=== PATIENT | female | born 1990 ===

== ENCOUNTER 2025-01-17 13:48 | Emergency (ER) | payer OTHER, SELFPAY ==
[2025-01-17 13:53] VITALS: BP 133/85; PULSE 83; RESP 18; TEMP 36.4; O2SAT 98; BMI 31.3
--- NOTE | 2025-01-17 14:11 | ED.GENADULT ---
HPI - General Adult General Chief complaint: Skin/Abscess/Foreign Body Stated complaint: allergic reaction Time Seen by Provider: 01/17/25 14:00 Source: patient Mode of arrival: ambulatory Limitations: no limitations History of Present Illness ED Provider: Lavonne Gonzales NP HPI narrative: Patient is a 34-year-old female who presents emergency department for evaluation. She reports a diffuse pruritic rash to the bilateral arms, legs, torso and chest over the past week unrelieved with OTC hydrocortisone cream. She denies any known allergens. No new soaps lotions or detergents. She does state that the rash began a couple of days after swimming in a pool. Denies any friends or family with similar rash. No associated chest pain, shortness of breath, or difficulty breathing. No recent URI symptoms. No recent travel. No conjunctivitis. Related Data Previous Rx's ?Medication ?Instructions ?Recorded prednisone 20 mg tablet 40 mg (2 x 20 mg) PO DAILY #10 tabs 01/17/25 Allergies Allergy/AdvReac Type Severity Reaction Status Date / Time No Known Allergies Allergy Verified 01/17/25 13:56 Review of Systems Review of Systems: Yes all other systems are reviewed and are negative [facility] Past Medical History Attestation statement: The following information was validated with the patient. Source: old records reviewed Social History Social History Advance Directives: No Advance Directives Information Provided: No Physical Exam ED Exam Exam: Appearance: Alert.?Oriented to person, place and time. No acute distress.?Normal affect. Eyes: Pupils equal, round and reactive to light.? Conjunctiva within normal range. ENT: Pharynx normal.? No erythema. No swelling. Uvula is midline. ? Neck: Normal inspection.? Neck supple.?? CVS: Heart sounds normal. Normal heart rate and rhythm.? Pulses normal.?? Respiratory: No respiratory distress.? Lung sounds clear to auscultation bilaterally?? Abdomen: Soft and non-tender. Normoactive bowel sounds. ?? Skin: Skin warm and dry.? Normal skin color.? Diffuse maculopapular pruritic rash noted on extremities and torso. No swelling, surrounding erythema or warmth. Extremities: No lower extremity edema. ? Neuro: Moves all extremities spontaneously. Sensation intact bilaterally. Ambulates with normal steady gait. Vital Signs: Vital Signs - 24 hr 01/17/25 13:53 Temperature 97.5 F Pulse Rate 83 Respiratory Rate 18 Blood Pressure 133/85 Pulse Oximetry 98 Oxygen Delivery Method Room Air BMI result Body Mass Index 31.3 Medical Decision Making Medical Decision Making [facility] Narrative: Patient is a 35-year-old female with no reported past medical history who presents emergency department for evaluation of diffuse pruritic maculopapular rash of the extremities and torso over the past week as per HPI. Onset s/p swimming in a pool, no recent travel. On examination no evidence of cellulitis. No associated conjunctivitis not consistent with measles. There was no airway compromise that would favor anaphylaxis. Reviewed with patient potential for allergy type reaction versus contact dermatitis. Given the widespread nature of it, and unresponsiveness thus far to hydrocortisone, you will trial and treatment with or steroid and discussed outpatient follow-up with primary care provider. Utilization of hypoallergenic non scented soaps and lotions in the interim. Reviewed worrisome signs and symptoms that would warrant re-evaluation in the emergency department. Differential Diagnosis Differential Diagnoses: The differential diagnosis associated with the presentation includes (See narrative above) Prescription Management I considered prescription management with: Other (See narrative above) Discharge Plan Discharge Clinical Impression: Contact dermatitis Qualifiers: Contact dermatitis type: unspecified Contact dermatitis trigger: unspecified trigger Qualified Code(s): L25.9 - Unspecified contact dermatitis, unspecified cause Patient Disposition: Home, Self-Care Instructions: Contact Dermatitis (ED) Additional Instructions: Use hypoallergenic non scented soap and lotion. Take prednisone daily with food to prevent stomach upset. Follow-up outpatient primary care provider. Prescriptions: New prednisone 20 mg tablet 40 mg PO DAILY Qty: 10 0RF Referrals: Physician,None [Primary Care Provider, Medical] Print Language: Yakut
[2025-01-17 14:30] VITALS: BP 133/85; PULSE 83; RESP 18; TEMP 36.4; O2SAT 98
== END 2025-01-17 14:31 | disposition home or self-care (01) ==
PROVIDERS: Emergency Provider Emergency Medicine
DX: L25.9 Unspecified contact dermatitis, unspecified cause (principal); R21 Rash and other nonspecific skin eruption
CPT/HCPCS: 99283